=== PATIENT | female | born 1960 ===

== ENCOUNTER 2017-07-12 12:00 | Outpatient (CLI) | payer OTHER ==
[2017-07-13] MEDS ORDERED: SYMBICORT 16010.2 GM IH ×2 (15:00)
[2017-07-13] MEDS ORDERED: ALLEGRA-D 12 H1 EACH PO (15:01)
[2017-07-13] MEDS ORDERED: SINGULAIR10 MG PO (15:01)
[2017-07-13] MEDS ORDERED: THEOPHYLLINE400 MG PO (15:01)
== END 2017-07-12 12:12 | disposition home or self-care (01) ==
LOC: EKG 12:00
DX: I11.9 Hypertensive heart disease without heart failure (principal)

== ENCOUNTER 2017-07-14 05:40 | Day surgery (SDC) | payer OTHER ==
[~2017-07-14 05:40] MED LIST: ALLEGRA-D 12 H1 EACH PO; SINGULAIR10 MG PO; SYMBICORT 16010.2 GM IH; THEOPHYLLINE400 MG PO
== END 2017-07-14 12:45 | disposition home or self-care (01) ==
LOC: CIR.AMB 05:40
DX: N84.1 Polyp of cervix uteri (principal)